=== PATIENT | male | born 1955 | race Caucasian/White ===

== ENCOUNTER 2016-09-23 07:42 | Emergency (ER) | payer OTHER ==
[~2016-09-23] VITALS: Ht 172.7 cm; Wt 97.5 kg
--- NOTE | 2016-09-23 08:08 | ED HAND/WRIST INJURY COMPLAINT ---
History of Present Illness General Chief Complaint: Laceration Procedure Stated Complaint: LAC TO FINGER Source: patient Exam Limitations: no limitations Vital Signs & Intake/Output Vital Signs & Intake/Output Vital Signs Date Time Temp Pulse Resp B/P Pulse O2 O2 Flow FiO2 Ox Delivery Rate 09/23 0750 97.0 73 20 186/84 97 Room Air Allergies Coded Allergies: No Known Allergies (09/23/16) Reconcile Medications Canagliflozin (Invokana) 100 MG TABLET 1 TAB PO DAILY DM (Reported) Dulaglutide (Trulicity) (Unknown Strength) PEN.INJCTR (Unknown Dose) SC DM ( Reported) Fenofibrate Nanocrystallized (Fenofibrate) 145 MG TABLET 1 TAB PO DAILY CHOLESTEROL (Reported) Insulin Degludec (Tresiba Flextouch U-200) (Unknown Strength) INSULN.PEN ( Unknown Dose) SC DM (Reported) Lisinopril 20 MG TABLET 1 TAB PO BID HEART (Reported) Lovastatin 20 MG TABLET 1 TAB PO DAILY CHOLESTEROL (Reported) Metoprolol Succinate 100 MG TAB.ER.24H 1 TAB PO BID HEART (Reported) Triage Note: LAC JEANETTE LEFT INDEX FINGER FROM GL[place] JAR. BLEEDING CONTROLLED WITH PRESSURE BANDAGE IN TRIAGE Triage Nurses Notes Reviewed? yes HPI: Patient is a 61 year old male presents complaining of left index finger laceration. Patient was catching a bk jar, when the jar broke. Injury occurred this morning prior to arrival. Pain is moderate, worsens with palpation. Patient is right-hand dominant. Patient is unsure of his last tetanus immunization. Positive paresthesias to the left distal finger. Patient denies decreased range of motion Past History Travel History Traveled to [place] past 21 day No Medical History Any Pertinent Medical History? see below for history Cardiovascular: hypertension, hyperlipidemia Endocrine: diabetes Surgical History Surgical History: non-contributory Psychosocial History What is your primary language [place]ian Tobacco Use: Never used ETOH Use: occasional use Illicit Drug Use: denies illicit drug use Family History Hx Contributory? No Review of Systems Review of Systems Constitutional: Reports: no symptoms. Cardiovascular: Denies: chest pain. GI: Denies: abdominal pain. Musculoskeletal: Reports: see HPI. Skin: Reports: see HPI. Neurological/Psychological: Reports: paresthesia (left index finger distal). Hematologic/Endocrine: Reports: bleeding (from wound). Immunologic/Allergic: Reports: no symptoms. Physical Exam Physical Exam General Appearance: well developed/nourished, alert, awake Head: atraumatic, normal appearance Eyes: Bilateral: normal appearance. Ears, Nose, Throat: hearing grossly normal Neck: normal inspection, full range of motion Cardiovascular/Respiratory: no respiratory distress Back: normal range of motion Hand Left: 2.5 cm laceration left index finger volar surface over the proximal phalanx. Decreased sensation to light touch to the distal ulnar side of the left 2nd finger. Full range of motion, no visible or functional tendon deficit. Capillary refill 2+ Hand Right: normal inspection, normal range of motion Neurologic/Tendon: normal motor functions, normal tendon functions, sensory deficit Skin: warm/dry Progress Differential Diagnosis: laceration, nerve laceration, tendon laceration, foreign body Plan of Care: Patient with decreased sensation to light and sharp touch to the ulnar side of the distal left finger. Discussed with patient likely nerve laceration and importance of hand surgeon follow-up. No visible or palpable foreign body. Discussed the possibility of a retained foreign body and importance of monitoring for signs of infection. Discussed patient's elevated blood pressure with him. Reports that he has a home blood pressure cuff and his readings recently have been 130's/80's. Departure Departure Time of Disposition: 844 Disposition: HOME OR SELF CARE Condition: Stable Clinical Impression Primary Impression: Finger laceration Qualifiers: Encounter type: initial encounter Qualified Code: S61.219A - Laceration without foreign body of unspecified finger without damage to nail, initial encounter Secondary Impressions: Elevated blood pressure reading Laceration of digital nerve of finger Qualifiers: Encounter type: initial encounter Qualified Code: S64.40XA - Injury of digital nerve of unspecified finger, initial encounter Referrals: ZANE ANG,JUVENAL LANGLEY MD,ELIN Mantilla (PCP/Family) Additional Instructions: Follow with with Dr. Elizalde(hand specialist) within 1 week for further evaluation. Call today for appointment. Keep wound clean. Change dressing daily. Return to the ER if pus from the wound, redness spreading friom the wound, fevers, increasing pain or worsening of symptoms. Departure Forms: Customer Survey General Discharge Information Procedures Laceration/Wound Repair Laceration/Wound Repair: Wound's Depth, Shape: linear, subcutaneous Wound Length (cm): 2.5 Wound Explored: clean Irrigated w/ Saline (ccs): 500 Betadine Prep? Yes Anesthesia: digit block, 1% lidocaine Volume Anesthetic (ccs): 4 Wound Debrided: minimal Wound Repaired With: sutures Suture Size/Type: 5:0, nylon Number of Sutures: 6 Splint Applied? Yes Type of Splint Applied: finger splint
[2016-09-23] MEDS ORDERED: METOPROLOL SUC100 M2 PO (08:15)
[2016-09-23] MEDS ORDERED: LOVASTATIN20 M1 PO (08:15)
[2016-09-23] MEDS ORDERED: LISINOPRIL20 M1 PO (08:15)
[2016-09-23] MEDS ORDERED: TRULICITY1.5 MG/0.5 SC (08:16)
[2016-09-23] MEDS ORDERED: TRESIBA FL200 UNIT/1 SC (08:16)
[2016-09-23] MEDS ORDERED: FENOFIBRATE145 M1 PO (08:16)
[2016-09-23] MEDS ORDERED: INVOKANA100 M1 PO (08:17)
[2016-09-23 08:58] VITALS: BP 154/76
== END 2016-09-23 08:59 ==
LOC: ERH 07:42
DX: S61.211A Laceration without foreign body of left index finger without damage to nail, initial encounter (principal); W25.XXXA Contact with sharp glass, initial encounter; Y93.89 Activity, other specified; Y92.9 Unspecified place or not applicable
CPT/HCPCS: 90471; 90714